=== PATIENT | female | born 1940 | race Caucasian/White ===

== ENCOUNTER → 2017-04-01 | Outpatient (CLI) | payer MEDICARE ==
[2017-04-01 18:39] LABS: Alanine Aminotransfer (ALT/SGP 16 U/L (12-78); Albumin, Blood 3.9 g/dL (3.4-5.0); Alk Phos 80 U/L (50-136); Anion Gap 9 mmol/L (6-16); Aspartate Aminotrans (AST/SGOT 16 U/L (12-37); Bilirubin, Total 0.5 mg/dL (0.1-1.0); Blood Urea Nitrogen 7 mg/dL (8-24); Bun/Creatinine Ratio 16.9 (12.0-20.0); CHOL/HDL RATIO 2.4; CO2, Blood 29 mmol/L (21-32); Calcium, Blood 9.6 mg/dL (8.5-10.1); Chloride, Blood 100 mmol/L (98-108); Cholesterol 200 mg/dL (50-200); Creatinine, Blood 0.42 mg/dL (0.40-1.00); Globulin, Blood 3.8 g/dL (2.2-4.0); Glomerular Filtration Rate >60 (60-); Glucose, Blood 85 mg/dL (70-99); HDL Cholesterol 84 mg/dL (>39); LDL/HDL RATIO 1.2; Low Density Lipoprotein Chol 98 mg/dL (0-110); Potassium, Blood 4.7 mmol/L (3.5-5.5); Sodium, Blood 138 mmol/L (136-145); Total Protein, Blood 7.7 g/dL (6.4-8.2); Triglycerides 90 mg/dL (30-160); Very Low Density Lipoprot Chol 18 mg/dL (6-32)
== END | disposition home or self-care (01) ==
LOC: LAB SHORT 17:58
PROVIDERS: Nurse Practitioner Family
DX: Z13.220 Encounter for screening for lipoid disorders (principal); I63.9 Cerebral infarction, unspecified; E55.9 Vitamin D deficiency, unspecified; R01.1 Cardiac murmur, unspecified; Z71.89 Other specified counseling
CPT/HCPCS: 80053; 80061; 82306

== ENCOUNTER 2019-11-15 16:37 | Emergency (ER) | payer MEDICARE, OTHER ==
[~2019-11-15] VITALS: Ht 165.1 cm; Wt 44.0 kg
[~2019-11-15 16:37] MED LIST: KEFLEX500 MG PO
[2019-11-15 17:19] LABS: BASOPHILS ABSOLUTE AUTO 0.04 K/mm3 (0.00-0.23); BASOPHILS PERCENT AUTO 0 % (0-2); EOSINOPHILS ABSOLUTE AUTO 0.07 K/mm3 (0.00-0.68); EOSINOPHILS PERCENT AUTO 1 % (0-6); Hematocrit 49.1 % (33.0-51.0); Hemoglobin 15.9 g/dL (11.5-16.0); IMMATURE GRAN ABSOLUTE AUTO 0.02 K/mm3 (0.00-0.10); IMMATURE GRAN PERCENT AUTO 0 % (0-1); LYMPHOCYTES PERCENT AUTO 11 % (21-46); MONOCYTES ABSOLUTE AUTO 0.89 K/mm3 (0.16-1.47); MONOCYTES PERCENT AUTO 8 % (4-13); Mean Corpuscular HGB 30.6 pg (26.0-34.0); Mean Corpuscular HGB Conc 32.4 g/dL (31.5-36.5); Mean Corpuscular Volume 94 fL (80-100); Mean Platelet Volume 11.3 fL (9.1-12.4); NEUTROPHILS ABSOLUTE AUTO 8.41 K/mm3 (1.96-9.15); NEUTROPHILS PERCENT AUTO 79 % (41-73); Platelet Count 208 K/mm3 (150-400); RDW Coefficient Variation 14.8 % (11.7-14.2); RDW Standard Deviation 52.1 fL (35.1-46.3); White Blood Cell Count 10.63 K/mm3 (4.00-11.30)
[2019-11-15 17:37] LABS: Alanine Aminotransfer (ALT/SGP 35 U/L (12-78); Albumin, Blood 3.4 g/dL (3.4-5.0); Albumin/Globulin Ratio 0.9 (0.8-1.8); Alk Phos 78 U/L (50-136); Anion Gap 4 mmol/L (6-16); Aspartate Aminotrans (AST/SGOT 23 U/L (12-37); Bilirubin, Total 0.3 mg/dL (0.1-1.0); Blood Urea Nitrogen 20 mg/dL (8-24); Bun/Creatinine Ratio 46.4 (12.0-20.0); CO2, Blood 32 mmol/L (21-32); Calcium, Blood 9.6 mg/dL (8.5-10.1); Chloride, Blood 105 mmol/L (98-108); Creatinine, Blood 0.43 mg/dL (0.40-1.00); Globulin, Blood 3.9 g/dL (2.2-4.0); Glomerular Filtration Rate >60 (60-); Glucose, Blood 88 mg/dL (70-99); Potassium, Blood 4.5 mmol/L (3.5-5.5); Sodium, Blood 141 mmol/L (136-145); Total Protein, Blood 7.3 g/dL (6.4-8.2)
[2019-11-15 17:59] LABS: Source, Urine Clean Catch
[2019-11-15 18:01] LABS: Bilirubin, Urine Neg (Neg); Blood, Urine Neg (Neg); Glucose Qualitative, Urine Neg (Neg); Ketones, Urine Neg (Neg); Leukocyte Esterase, Urine 3+ (Neg); Nitrite, Urine Pos (Neg); Protein, Urine Neg (Neg); Specific Gravity, Urine 1.015 (1.003-1.022); Urobilinogen, Urine NORM (Normal); pH, Urine 6.5 (5.0-8.0)
[2019-11-15 18:36] LABS: Appearance, Urine Hazy (Clear); Color, Urine Yellow (P-Yellow)
[2019-11-15 18:39] LABS: Bacteria Many /hpf; Red Blood Cells, Urine 0-2 /hpf (0-2); Squamous Epithelial Cells Rare /hpf (Few)
[2019-11-15] MEDS ORDERED: CIPR500 PO (20:08)
== END 2019-11-15 20:25 | disposition home or self-care (01) ==
LOC: ER 16:37
PROVIDERS: Emergency Medicine
DX: N39.0 Urinary tract infection, site not specified (principal); R60.0 Localized edema; R09.89 Other specified symptoms and signs involving the circulatory and respiratory systems; J44.9 Chronic obstructive pulmonary disease, unspecified; F17.210 Nicotine dependence, cigarettes, uncomplicated; Z85.22 Personal history of malignant neoplasm of nasal cavities, middle ear, and accessory sinuses; Z88.0 Allergy status to penicillin; W05.0XXA Fall from non-moving wheelchair, initial encounter
CPT/HCPCS: 71046; 80053; 81001; 85025; 87077; 87086; 87186; 93005; 93010; 99284-25

== ENCOUNTER 2019-12-02 09:46 | Inpatient (IN) | payer MEDICARE ==
[~2019-12-02] VITALS: Ht 165.1 cm; Wt 47.3 kg
[~2019-12-02 09:46] MED LIST changes: +CIPR500 PO
[2019-12-02 10:29] LABS: BASOPHILS ABSOLUTE AUTO 0.03 K/mm3 (0.00-0.23); BASOPHILS PERCENT AUTO 0 % (0-2); EOSINOPHILS ABSOLUTE AUTO 0.04 K/mm3 (0.00-0.68); EOSINOPHILS PERCENT AUTO 0 % (0-6); Hematocrit 51.2 % (33.0-51.0); Hemoglobin 16.3 g/dL (11.5-16.0); IMMATURE GRAN ABSOLUTE AUTO 0.02 K/mm3 (0.00-0.10); IMMATURE GRAN PERCENT AUTO 0 % (0-1); LYMPHOCYTES PERCENT AUTO 11 % (21-46); MONOCYTES ABSOLUTE AUTO 0.54 K/mm3 (0.16-1.47); MONOCYTES PERCENT AUTO 6 % (4-13); Mean Corpuscular HGB 30.8 pg (26.0-34.0); Mean Corpuscular HGB Conc 31.8 g/dL (31.5-36.5); Mean Corpuscular Volume 97 fL (80-100); Mean Platelet Volume 11.6 fL (9.1-12.4); NEUTROPHILS ABSOLUTE AUTO 7.92 K/mm3 (1.96-9.15); NEUTROPHILS PERCENT AUTO 83 % (41-73); Platelet Count 186 K/mm3 (150-400); RDW Coefficient Variation 14.7 % (11.7-14.2); RDW Standard Deviation 53.1 fL (35.1-46.3); White Blood Cell Count 9.55 K/mm3 (4.00-11.30)
[2019-12-02 10:32] LABS: Source, Urine Clean Catch
[2019-12-02 10:37] LABS: Appearance, Urine Hazy (Clear); Bilirubin, Urine Neg (Neg); Blood, Urine 3+ (Neg); Color, Urine Yellow (P-Yellow); Glucose Qualitative, Urine Neg (Neg); Ketones, Urine Neg (Neg); Leukocyte Esterase, Urine 2+ (Neg); Nitrite, Urine Pos (Neg); Protein, Urine Neg (Neg); Urobilinogen, Urine NORM (Normal)
[2019-12-02 10:45] LABS: White Blood Cells, Urine 25-50 /hpf (0-5)
[2019-12-02 10:46] LABS: Bacteria Many /hpf; Squamous Epithelial Cells Few /hpf (Few)
[2019-12-02 10:46] LABS: Alanine Aminotransfer (ALT/SGP 25 U/L (12-78); Albumin, Blood 3.4 g/dL (3.4-5.0); Albumin/Globulin Ratio 0.9 (0.8-1.8); Alk Phos 80 U/L (50-136); Anion Gap 5 mmol/L (6-16); Aspartate Aminotrans (AST/SGOT 15 U/L (12-37); Bilirubin, Total 0.5 mg/dL (0.1-1.0); Blood Urea Nitrogen 14 mg/dL (8-24); Bun/Creatinine Ratio 29.7 (12.0-20.0); CO2, Blood 34 mmol/L (21-32); Calcium, Blood 9.2 mg/dL (8.5-10.1); Chloride, Blood 106 mmol/L (98-108); Creatinine, Blood 0.47 mg/dL (0.40-1.00); Globulin, Blood 3.9 g/dL (2.2-4.0); Glomerular Filtration Rate >60 (60-); Glucose, Blood 94 mg/dL (70-99); Potassium, Blood 4.7 mmol/L (3.5-5.5); Sodium, Blood 145 mmol/L (136-145); Total Protein, Blood 7.3 g/dL (6.4-8.2); Troponin I <0.015 ng/mL (0.000-0.040)
--- NOTE | 2019-12-02 17:09 | NUR ---
SHIFT SUMMARY PT IS AOX1 TO SELF. PT EXHIBITS CONFUSION ABOUT WHERE SHE IS, THE DATE, AND REASON SHE IS IN THE HOSPITAL. PT DENIES PAIN, N/V, SOB. PT HAS DIFFICULTY AMBULATING AND USES A WHEELCHAIR AT BASELINE. PT WORKED WITH PT TODAY UPON ARRIVAL TO THE UNIT. PLAN IS TO FIND PLACEMENT TO A PRISON. PT HAS SCREAMED OUT WHEN SHE NEEDED TO USE THE BATHROOM WHILE USING THE CALL LIGHT. PT FORGETS LIMITATIONS BUT HAS NOT ATTEMPTED TO LEAVE THE BED THIS SHIFT. PT CALLS FOR HER NEEDS USING THE CALL LIGHT. BED IS LOWERED, CALL LIGHT IN REACH, BED ALARM ON.
--- NOTE | 2019-12-03 07:02 | NUR ---
DIRECT CARE PROFESSIONAL SUMMARY Patient quite animated and fidgety most of evening calling and setting off alarm due to urinary urgency. Then after around 2200, the patient asked to be tucked in and fell right to sleep. One episode of incontinence around 0400, then immediately onto the commode for another small void of 150ml of clear yellow urine. Very little odor. Aylin did seem very depressed about her situation and could likely benefit from a Pastoral Care or Industrial Machine Assembler consult.
--- NOTE | 2019-12-03 18:35 | NUR ---
SHIFT SUMMARY PT IS AO TO SELF AND SURROUNDINGS. PT DENIES PAIN, N/V, SOB. PT SCREAMS OUT FOR HELP AND FORGETS TO USE THE CALL LIGHT. PT IS AWAITING PLACEMENT TO ASSISTED LIVING. PT REQUIRES REDIRECTION BUT QUIETS DOWN AFTER REDIRECTION. PT IS IN BED, CALL LIGHT IN REACH, BED IN LOW POSITION WITH ALARM ON.
--- NOTE | 2019-12-04 08:03 | NUR ---
SAFETY PROFESSIONAL SUMMARY Aylin laid awake most of night just staring at the door. Several times she would yell out that she needed to leave. She insisted she needed a new bed and to leave here quickly. Urine resent for culture. Urine still appears light yellow and clear with minimal to no odor. Very confused. very focused on no light being in room even when staff comes in to assist her. last night, needed assistance with all adl's
--- NOTE | 2019-12-04 15:22 | NUR ---
CALLED DR RDZ AND INFORMED HER OF PT'S LOW GRADE FEVER OF 100.5 AND CONFUSION--DESPITE FREQUENT REORIENTATIONS, SHE DOESN'T REMEMBER THAT SHE IS IN THE HOSPITAL
--- NOTE | 2019-12-04 16:08 | NUR ---
Initial spiritual care note: Per admit trigger, I visited Aylin to offer prayer and spiritual encouragement. She was irritable and told me she "just wants to go home!" She declined prayer and conversation. I will remain available.
--- NOTE | 2019-12-04 18:26 | NUR ---
SHIFT SUMMARY DANIEL WAS ORIENTED SOMEWHAT THIS SHIFT. CONTINUOUSLY FORGETTING SHE IS IN THE HOSPITAL, SAYING 'I HAVE NO IDEA' WHEN ASKED WHERE SHE IS. NO IDEA THE YEAR. SLIGHT TEMP OF 100.4. YELLS OUT WHEN SHE NEEDS TO GO TO THE BSC AND/OR INCONTINENT URINE. DENIED PAIN. TOOK MEDS PRESCRIBED, WCTM
--- NOTE | 2019-12-04 22:49 | NUR ---
2055 PT LYING IN BED, DENIES ANY DISCOMFORT AT THIS TIME. SCD'S ON. NO OTHER APPARENT SIGNS OF DISTRESS. CALL LIGHT IS IN REACH. BED ALARM IS ON.
--- NOTE | 2019-12-04 22:50 | NUR ---
2200 PT LYING IN BED, EYES CLOSED, APPEARS TO BE RESTING. BREATHING IS EVEN, UNLABORED. NO APPARENT SIGNS OF DISTRESS. CALL LIGHT IS IN REACH. BED ALARM IS ON.
--- NOTE | 2019-12-05 01:55 | NUR ---
0000 PT LYING IN BED, EYES CLOSED, APPEARS TO BE RESTING. BREATHING IS EVEN, UNLABORED. NO APPARENT SIGNS OF DISTRESS. CALL LIGHT IS IN REACH. BED ALARM IS ON.
--- NOTE | 2019-12-05 04:30 | NUR ---
PT LYING IN BED, EYES CLOSED, APPEARS TO BE RESTING. WAKES EASILY TO VERBAL STIMULI. NO APPARENT SIGNS OF DISTRESS. CALL LIGHT IS IN REACH. BED ALARM IS ON.
--- NOTE | 2019-12-05 04:31 | NUR ---
PT IS AAO X 1-2, DENIES ANY DISCOMFORT FOR THIS SHIFT. SCD'S ON. EDEMA IN LE'S.
--- NOTE | 2019-12-05 05:58 | NUR ---
PT LYING IN BED, EYES CLOSED, APPEARS TO BE RESTING. BREATHING IS EVEN, UNLABORED. NO APPARENT SIGNS OF DISTRESS. CALL LIGHT IS IN REACH. BED ALARM IS ON. NO OTHER CHANGES THIS SHIFT.
--- NOTE | 2019-12-05 18:48 | NUR ---
SHIFT SUMMARY DANIEL WAS CONFUSED TODAY, NOT REMEMBERING SHE WAS IN THE HOSPITAL. SHE DID USE THE CALL LIGHT APPROPRIATELY ONE TIME, THE REST OF THE TIME YELLING OUT WHEN SHE NEEDED TO USE THE BSC. USUALLY INCONTINENT WELL SOME BSC USE. AO1 TO BSC WITH GAIT BELT. DENIED PAIN. TOOK MEDS PRESCRIBED.
--- NOTE | 2019-12-06 05:57 | NUR ---
Rn summary: Patient is alert and oriented x3. Pt was up to the BSC with 1 assist tonight. Pt is flat and withdrawn, engages with staff minimally. Pt has denied pain this shift. She has rested. Call light is in reach. Plan is for placement. Will continue to monitor.
--- NOTE | 2019-12-06 18:10 | NUR ---
SHIFT SUMMARY: NO ACUTE EVENTS THIS SHIFT. A&O X 1, WITHDRAWN AND APATHETIC, WANTS TO BE LEFT ALONE WITH THE LIGHTS OFF. REFUSED BATHING AND LINEN CHANGE; BOTH DONE WHILE SHE WAS ON BSC. DENIED PAIN. APPETITE IS VERY POOR, NOT DRINKING MUCH, NEEDS ENCOURAGEMENT BUT DOES NOT COOPERATE. NAPPED OFF AND ON DURING THE DAY.
--- NOTE | 2019-12-07 04:32 | NUR ---
SHIFT SUMMARY ASSUMED CARE OF PT AT 1900. PT IS ALERT TO SELF. HEART SOUNDS REGULAR, LUNG SOUNDS CLEAR. PT WAS A 1P MINIMAL ASSIST TO COMMODE. PT WAS BOTH CONTINENT AND INCONTINENT OF URINE. NO ACUTE CHANGES T/O THE NIGHT. PT SLEPT T/O THE NIGHT. CALL LIGHT IN REACH, BED IN LOWEST POSITION.
--- NOTE | 2019-12-07 18:26 | NUR ---
SHIFT SUMMARY- PT IS ALERT, AND CONFUSED. SHE HAS SHORT RESPONSES TO QUESTIONS. HER APPETITE IS POOR. SHE SAT UP TO EAT MEALS. SHE SLEPT INTERMITENTLY THROUGHOUT THIS SHIFT
--- NOTE | 2019-12-08 03:32 | NUR ---
SUMMARY NO ISSUES NOTED. PT HAS BEEN RESTING/ SLEEPING MOST OF SHIFT. PT REPORTED NO COMPLAINTS OR ISSUES. PT CURRENTLY SLEEPING AND BREATHING EASY. CALL LIGHT IN REACH.
--- NOTE | 2019-12-08 18:33 | NUR ---
Shift Summary A/O to self. Does not use call light appropriately, instead yells out for assistance. Up to bedside commode x 1 moderate assist, continent of bowel, incontinent of bladder. Refused PT, worked minimally with OT. Appears to have a flat affect and lacks motivation for self care. Will not sit up in chair for longer than 10 minutes. Otherwise, VSS and afebrile. No concerns, will continue to monitor.
--- NOTE | 2019-12-09 04:53 | NUR ---
SUPERVISOR LANDSCAPE SUMMARY PT IS VERY WITHDRAWN AND ONLY ANSWERS IN ONE WORD RESPONSES. PT DOES NOT USE CALL LIGHT INSTEAD SHE YELLS OUT WHEN SHE NEEDS ASSISTANCE. PT DENIES ANY PAIN OR NAUSEA AND HAS ONLY CALLED OUT ONCE TO USE BSC.
--- NOTE | 2019-12-09 14:20 | NUR ---
SHIFT SUMMARY TRANSFERRED TO ROOM 353 AT ABOUT 1100. DENIES NEEDS. ORIENTED TO ROOM. RESTING WITH EYES CLOSED. AWAITING PLACEMENT. NO ACUTE EVENTS.
--- NOTE | 2019-12-09 16:29 | NUR ---
1014 PT TRANSFERED TO [facility] SECONDARY TO CONFUSION, YELLING OUT, AND HIGH FALL RISK. REPORT GIVEN TO Fredy MEDINA RN PRIOR TO TRANSFER.
--- NOTE | 2019-12-10 04:09 | NUR ---
MOTION AND TIME STUDY TEACHER SUMMARY NO ACUTE CHANGES NOTED TO PATIENT THIS SHIFT. PATIENT IS A&O TO SELF, ABLE TO MAKE NEEDS KNOWN. FLAT AFFECT, WITHDRAWN. CALM AND RESTED IN BED T/O SHIFT. PATIENT HAS NO C/O PAIN OR ANY DISCOMFORT. DIMINISHED LS, NO C/O SOB. MINOR TREMORS NOTED WHEN PATIENT WAS TAKING HER MEDICATIONS. NO TREMORS NOTED AT REST. BED ALARM IN PLACE, CALL LIGHT WITHIN REACH. WILL CONTINUE TO MONITOR PATIENT. WILL REPORT TO ONCOMING RN.
--- NOTE | 2019-12-11 04:24 | NUR ---
SHIFT SUMMARY PATIENT HAD NO ACUTE CHANGES OBSERVED. AXO TO SELF. FLAT AFFECT AND WITHDRAWN. KEEPS REPEATING WHAT SHE WANTS WHEN HER REQUEST HAS ALREADY BEEN ANSWERED. ONE ASSIST TO BSC. TAKES MEDICATION WHOLE WITH WATER. PIV REMAINS INTACT. BASELINE HAND TREMORS. CALL LIGHT IN REACH. BED IN LOWEST POSITION. WILL CONTINUE TO MONITOR UNTIL DAY SHIFT NURSE ASSUMES CARE.
--- NOTE | 2019-12-11 16:31 | NUR ---
A&OX2, ONE ASSIST PIVOT TRANSFER TO [facility] AND INCONTINENT. PT HAD APPROXAMATLEY 50 PERCENT OF HER MEALS. PT DENIES ANY PAIN. D/C OF IV PER DR. MINAYA. PT APPERARS TO BE SLEEPING AT THIS TIME. NO OTHER CHANGES OR CONCERNS TO REPORT AT THIS TIME. CALL LIGHT AND BED ALARM IS ON AT THIS TIME.
--- NOTE | 2019-12-12 07:13 | NUR ---
79 year old PT with failure to thrive & skin cancer continues with poor oral intake & needed max assist for toileting & bed mobility. Incont of urine & says she knows when she is wet needs checked & changed Q 4 hours & PRN. Repositioning needed to prevent skin breakdown. Flat affect but able to communicate. Fall precautions in place.
--- NOTE | 2019-12-12 15:13 | NUR ---
Met with pt able to slowly answer some questions. She deies headache and shorness of breath or aches and pain. Trie to mayke eye contact but doesn not turn headwell. Able to tell me she was at [facility] but lives here now. Denies having family or children states they wnet thier separate ways. she grew up in [facility]. Came to [place] to get away. She does not know whey she is here. Her face is very mask like and slight tremor. tried some divrsion turned on a program to watch tv she did not know what to watch. Tried conversation but to stressfuli.
--- NOTE | 2019-12-12 18:00 | NUR ---
PT IS ALERT, SOMULANT, THE PT IS SLOW TO RESPOND, THE PT DENIED ANY PAIN T/O THE DAY, THE PT IS UP WITH ASSIST TO THE BSC, PT DENIED ANY PAIN, THE PT APPEARED TO BE BREATHING EASILY ON RA, CALL LIGHT IN REACH, WILL CONTIUE TO MONITOR AND ASSESS FOR CHANGES
--- NOTE | 2019-12-12 20:35 | NUR ---
79 year old with failure to thrive able to communicate. asks nurses on rounds to help her get to bedside commode, Very weak unsteady up with 2 assist to BSC for large bowel movement. Incontinent & voids 200 ml on BSC. Denies pain or acute distress but is withdrawn, quiet & likes lights down & complains about any light even with cares. PT is being moved to room 341 report to Eula EDMOND & will update facility on room change.
--- NOTE | 2019-12-12 21:05 | NUR ---
transferred care to Reuben EDMOND & left voice message with Desiree Preston on room transfer. Transferred personal beloninging with PT.
--- NOTE | 2019-12-12 21:21 | NUR ---
PATIENT ARRIVED IN ROOM 341 VIA BED FROM ROOM 353. REPORT RECEIVED FROM RUBY HDEZ RN. PATIENT STATES NO DISCOMFORT. ALERT TO SELF. FLAT AFFECT. WILL CONTINUE CLOSE MONITORING
--- NOTE | 2019-12-13 05:34 | NUR ---
BUGGY LOADER SUMMARY Patient very quiet and somewhat flat throughout the night after being transferred from room 353 to room 341. Incontinent of urine X2 in briefs. Last BM 12/11. Aylin is quite obsessive about whatever is in her mind at the moment. (ie.. turning off lights, moving objects on table etc.) She is A&OX 1-2.
--- NOTE | 2019-12-13 13:32 | NUR ---
SHIFT SUMMARY PT RESTING QUIETLY AT START OF SHIFT. WOKE EASILY FOR CARE, BUT VERY WEAK WITH FLAT AFFECT. VERY LIMITED ASSISTANCE WHEN TURNING OR REPOSITIONING. PER SHIFT REPORT, PT WITH INCREASING DEMENTIA, NEEDING HIGHER LEVEL OF CARE. PT IS INCONTINENT OF BLADDER; ATTENDS IN PLACE. BED BATH GIVEN. PT REPOSITIONED WITH PILLOWS TO KEEP OFF BUTTOCKS. ABLE TO ANS TO STATE WHERE SHE IS COMFORTABLE. MEDS TAKEN WHOLE IN H2O. BED ALARM ON FOR SAFETY. CALL LT IN REACH.
--- NOTE | 2019-12-14 17:02 | NUR ---
PT AOX1 HAS BEEN COOPERATIVE OF CARE AND IN BED RESTING. PT DOES NOT USE CALL LIGHT AND WILL JUST START CALLING OUT. PT CAN LET CAREGIVERS KNOW IF SHE NEEDS TO USE RESTROOM OR A PILLOW MOVED,BUT NOTHING MORE. PT HAS BED ALARM IN PLACE AND WILL BE CONTINUED TO BE MONITORED.
--- NOTE | 2019-12-15 04:04 | NUR ---
SHIFT SUMMARY: 79 Y/O FEMALE RESTED COMFORTABLY ALL SHIFT; NO EPISODES YELLING OUT NOTED; ALERT PERSON ONLY; DENIES PAIN OR NAUSEA; BED ALARM APPLIED, BED LOW POSITION WITH CALL LIGHT AT SIDE.
--- NOTE | 2019-12-15 14:23 | NUR ---
PT TRANSFERED FROM RM 341 TO RM 347 IN SCU, REPORT RECIEVED PRIOR TO TRANSFER.
--- NOTE | 2019-12-15 17:53 | NUR ---
ALERT, ORIENTATED TO SELF, FOLLOWS DIRECTIONS, COOPERATIVE WITH CARE. PT WILL NOT USE CALL LIGHT, SHE DOES CALL OUT WHEN SHE REQUIRES ASSISTANCE. PT DENIES PAIN, SOB, N/V. NO NEW CHANGES OR CONCERNS SINCE ASSUMING CARE.
--- NOTE | 2019-12-15 19:29 | NUR ---
RESTING QUIETLY AT NURSING ROUNDING. CALL LIGHT IN REACH. NO NOTED ACUTE DISTRESS.
--- NOTE | 2019-12-16 04:13 | NUR ---
SIFT SUMMARY BEEN RESTING QUIETLY WITH FEW INTERRUPTIONS THIS SIFT. WHEN MURSE CAME I O ASSESS HER - SHE VOICED PREFERENCE TO "KEEP THE LIGHT OFF". RELUCTANTLY ALLOWED IT ON UNTIL SSESSMENT DONE, THEN INSTRUCTED NURSE TO "TURN OFF THE LIGHT!". RESTING QUIETLY AT THIS TIME. CALL LIGHT IN REACH
--- NOTE | 2019-12-16 17:11 | NUR ---
SHIFT SUMMARY PATIENT DENEIS PAIN, NAUSEA, AND SHORTNESS OF BREATH. PATIENT UP ONE ASSIST TO BSC. PATIENT HAD TWO LOOSE/INCONTINENT STOOLS THIS SHIFT. PATIENT WITHDRAWN, NAPPING OR WATCHING TELEVISION THIS SHIFT. REFUSES OOB EXCEPT FOR SHOWER.
--- NOTE | 2019-12-16 19:15 | NUR ---
AWAKE, WATCHING TV IN BED. DEMIED PAIN AND LOSS OF FEELING. CALL LIGHT IN REACH
--- NOTE | 2019-12-17 04:28 | NUR ---
HAS BEEN RESTING QUIETLY WITH FEW INTERRUPTIONS THIS SHIFT. CALL LIGHT IN REACH. NO NOTED S/S OF ACUTE DISTRESS.
--- NOTE | 2019-12-17 17:30 | NUR ---
SHIFT SUMMARY PATIENT DENIES PAIN, NAUSEA, AND SHORTNESS OF BREATH. PATIENT WITHDRAWN. STATES SHE IS LONELY, DECLINED OFFER TO SIT WITH STAFF IN HALLWAY. UP ONE ASSIST TO BSC. NAPPING OR WATCHING TV MOST OF SHIFT. FLUIDS ENCOURAGED.
--- NOTE | 2019-12-17 21:07 | NUR ---
AWAK, QUIETLY WATCING FOOTBALL GAME ON TV. ASSESSMENT DONE, DENIED PAIN OR DECREASED SENSATION. NURSE ATTEMPT AT SMALL CHAT, BUT PT REMAINS QUIET AND WITHDRAWN. CALL LIGHT IN REACH
--- NOTE | 2019-12-18 03:08 | NUR ---
SHIFT SUMMARY HAS BEEN RESTING QUIETLY, OCCASIONALLY WATCHING TV. NO NOTED S/S ACUTE DISTRESS. CALL LIGHT IN REACH. PREFERS LIGHTS OFF.
[2019-12-18 05:16] LABS: Hematocrit 50.2 % (33.0-51.0); Hemoglobin 16.1 g/dL (11.5-16.0); Mean Corpuscular HGB 30.8 pg (26.0-34.0); Mean Corpuscular HGB Conc 32.1 g/dL (31.5-36.5); Mean Corpuscular Volume 96 fL (80-100); Mean Platelet Volume 11.3 fL (9.1-12.4); Platelet Count 199 K/mm3 (150-400); RDW Coefficient Variation 13.8 % (11.7-14.2); RDW Standard Deviation 49.3 fL (35.1-46.3); Red Blood Cell Count 5.23 M/mm3 (3.80-5.20); White Blood Cell Count 8.91 K/mm3 (4.00-11.30)
[2019-12-18 05:38] LABS: Albumin, Blood 2.8 g/dL (3.4-5.0); Anion Gap 4 mmol/L (6-16); Blood Urea Nitrogen 19 mg/dL (8-24); Bun/Creatinine Ratio 49.7 (12.0-20.0); CO2, Blood 28 mmol/L (21-32); Calcium, Blood 8.8 mg/dL (8.5-10.1); Chloride, Blood 106 mmol/L (98-108); Creatinine, Blood 0.38 mg/dL (0.40-1.00); Glomerular Filtration Rate >60 (60-); Glucose, Blood 87 mg/dL (70-99); Potassium, Blood 4.7 mmol/L (3.5-5.5); Sodium, Blood 138 mmol/L (136-145)
--- NOTE | 2019-12-18 13:59 | NUR ---
therputic time spent with patient. Poor eye contact. Note slight tremor. Pt answers mostly yes no questions. offered her things to do or to get out of rrrom. She declined. will continue supportive viists. Suggest out patient neuro consult upon discharge.
--- NOTE | 2019-12-18 19:05 | NUR ---
SHIFT SUMMARY: NO ACUTE CHANGES TO REPORT THIS SHIFT. PT A&O X2-3; IRRITABLE; COOPERATIVE WITHCARE. NO C/O PAIN THIS SHIFT. POOR ORAL INTAKE; ADD'L INTAKE ENCOURAGED. AWAITING PLACEMENT. REPORT GIVEN TO ONCOMING RN.
--- NOTE | 2019-12-18 19:45 | NUR ---
ASSUMED CARE. DANIEL IS ALERT AND ORIENTED TO SELF. DOES NOT KNOW DAY AND TIME, OR WHERE SHE IS AT OTHER THEN A MEDICAL FACILITY. SHE IS VERY WITHDRAWN, FLAT AFFECT AND APPEARS THAT IT BUGS HER THAT I WAS TALKING TO HER. SHE DOES NOT LIKE ANSWERING QUESTIONS OR BEING BOTHERED. SHE EVEN PULLED HER TABLE BACK IN FRONT OF HER SO THAT IT WOULD PUSH ME AWAY. SHE WOULD ONLY ANSWER A FEW QUESTIONS THEN SHE WAS DONE WITH THE ASSESSMENT. DENIES ANY NEEDS A THIS TIME. WILL CONTINUE TO MONITOR. BED ALARM IS ON AND CALL LIGHT IS IN REACH.
--- NOTE | 2019-12-19 05:24 | NUR ---
SHIFT SUMMARY: DANIEL AOX2, VERY QUITE AND DOES NOT LIKE TO INTERACT WITH STAFF. SHE PERFERS TO BE LEFT ALONE IN THE DARK. DENIED ALL MEDICATION THIS SHIFT. WOULD ONLY LET US CHANGE HER THIS AM, WHICH SHE WAS SATURATED WITH URINE. GETS VERY UPSET IF WE MOVE THE BEDSIDE TABLE AWAY FROM THE BED EVEN FOR A SHORT PERIOD OF TIME. DRESSING TO BOTTOM STILL INTACT. VS WNL, AFEBRILE. BED ALARM ON, CALL LIGHT IN REACH. NO OTHER CHANGES TO REPORT.
--- NOTE | 2019-12-19 19:05 | NUR ---
SHIFT SUMMARY: NO ACUTE CHANGES TO REPORT THSI SHIFT. PT A&O X2-3; IRRITABLE; FLAT AFFECT; UNCOOPERATIVE WITH CARE; PT DESIRES TO BE LEFT ALONE. NO C/O PAIN. AWAITING PLACEMENT. REPORT GIVEN TO ONCOMING RN.
--- NOTE | 2019-12-19 19:20 | NUR ---
ASSUMED CARE. DANIEL IS VERY WITHDRAWN, FLAT, AND DOES NOT INTERACT WITH STAFF. SHE REFUSES TO ANSWER QUESTIONS WHEN ASKED. SHE DOES ALLOW FOR MILD ASSESSMENT BUT THEN WILL NOT MOVE FOR A FURTHER ASSESSMENT. SHE DOES NOT MAKE EYE CONTACT. SHE DOES NOT EVEN SPEAK OTHER THEN A MUMBLE HERE AND THERE. WHEN ASKED IF SHE WANTS HER MEDS TONIGHT SHE REFUSED TO ANSWER. WILL CONTINUE TO MONITOR, BED ALARM IS ON, AND CALL LIGHT IS IN REACH.
--- NOTE | 2019-12-20 05:25 | NUR ---
SHIFT SUMMARY: DANIEL HAS REMAINED QUITE ALL NIGHT, SLEEPING COMFORTABLY. STILL REFUSES TO TAKE ANY MEDS OR HAVE ASSISTANCE. SHE IS VERY WITHDRAWN AND DOES NOT EVEN LIKE TO TALK WHEN ASKED QUESTIONS. SHE DOES ALLOW VITALS AND MINIMAL ASSESSMENT TO BE DONE. SHE JUST PERFERS TO LAY IN THE DARK. CALL LIGHT HAS BEEN IN REACH AND BED ALARM ON.
--- NOTE | 2019-12-20 17:00 | NUR ---
SUMM- PT ALERT TO SELF. ANSWERS IN 1-2 WORD PHRASES. WITHDRAWN AND RESISTANT TO CARE. REFUSES TO ALLOW STAFF TO DO ORAL CARE. REFUSES TO GET UP INTO A CHAIR. PT TOLERATED ABOUT 50-75% OF MEALS AND TAKING IN MIN AMOUNT OF FLUIDS. PT DOESN'T USE CALL LIGHT BUT CALLS OUT TO GET HELP. GOT UP TO BSC 3-4 X'S TODAY AND HAD NO VOID- HAD BEEN INCONTINENT BEFORE GETTING UP AND NEVER VOIDED IN THE COMMODE. WILL REPORT TO NOC SHIFT.
--- NOTE | 2019-12-20 22:00 | NUR ---
Patient remains very withdrawn. She has again refused all of her HS medications, oral care, position changes or even a sip of fluid. Her voice is extremely difficult to hear, but she gently says no and shakes her head. She appears without hope. Does not appear to be in any pain. Breath smells fetid. Will continue to offer oral care, fluids. More frequent intentional rounding overnight, and hopefully will be able to provide some comfort to this very withdrawn and hopeless appearing patient. Will ask Day RN about Social work or Clergy visits.
--- NOTE | 2019-12-21 03:40 | NUR ---
PUBLIC HEALTH REPRESENTATIVE SUMMARY Aylin continues to be extremely withdrawn. She refuses all treatment except brief changes (which to allow staff to reposition each time). Oral care, medications, skin care and dietary items she does not have any inclination or interest in. Especially concerned about mouth breath smells fetid, and pt won't even take a sip of liquid.
--- NOTE | 2019-12-21 15:45 | NUR ---
Met with Aylin as per nursing request. Aylin has been refusing meds, care, food and fluids. She appears quite withdrawn and quiet. She has poor eye contact. This comic book writer entered the room and woke her up by calling her name. She answers simple yes/no questions. She is flat and withdrawn. Explained to her that I would like to help her but that she has to be willing to talk to me. She answers all questions of orientation appropriately at the time of my visit but has poor eye contact. She tells this comic book writer she is sad because she is in the hospital. She wants to go somewhere that she can get more care. She would not answer why she was choosing to refuse care, food/fluids and meds. Asked her if she wanted to seek care for her nasal cancer. She immediately said no without any hesitation. Asked her if she wanted to focus on being comfortable even if if meant she may not live as long and she immediately said yes. Explained to her that [facility] is working with [facility] on placement and the medicaid process. Explained to her that she could have hospice services that focus on comfort and not coming back to the hospital once she gets to her new living place. Yes stated that yes she wants hospice. Explained comfort care and asked her if she would like to start that while she is here. She stated yes she wants to change to comfort care. Explained that continuing to refuse food and fluid and not treating her cancer will hasten her . She stated that she understood. She denied all requests except chap stick which I provided for her. She tells me that Desiree Preston who is listed as her NOK is her step dtr. She states she has been in contact with Desiree recently and she gave this comic book writer permission to talk to Desiree about her medical care and her desire for hospice services. Called Desiree. Desiree states she is Aylin's step dtr and she lives in [place], [place]. She spoke with Aylin yesterday via phone and states that she seems withdrawn and was a little confused yesterday. Explained that Aylin was A/O x 4 today during on conversation. Desiree states Aylin has always been an introvert and would prefer to be home alone drinking and smoking. Desiree states Aylin used to be a "heavy drinker and she smoked a lot of pot!" Explained to Desiree that Aylin is not eating or drinking and is refusing care. Also informed her that Aylin is requesting comfort care and hospice. Desiree is supportive of Aylin's decision. Desiree reports she is familiar with hospice as several family members have had hospice services at the end of their life. Desiree states she is more than happy to assist with APD/CM to help get Aylin the care that she needs. Gave Desiree, Aylin's caseworkers name and contact number. Also left a message with CM, Peace Torre, to contact Desiree if there are any needs. Desiree states if she needs to travel to [place] to assist getting Aylin the placement and help she needs she is willing to do it. Desiree reports that after her dad , she has kept track of Aylin even though they are not really close. PC will continue to follow. Will speak with Dr. Sanchez re: conversation re: comfort care.
--- NOTE | 2019-12-21 17:22 | NUR ---
SHIFT SUMMARY PT A/O X3 WITH A FLAT/HOPELESS AFFECT. PT REFUSED MEDICATIONS AND MOST CARE TODAY. 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 1-2 PERSON ASSIST TO THE BSC. PT HAS GOTTEN UP TO THE BSC OFTEN TODAY. PALLIATIVE CARE SPOKE WITH PATIENT TODAY AND THE PATIENT HAS STATED THAT SHE WOULD LIKE TO STOP AGGRESSIVE TREATMENT AND TO FOCUS ON COMFORT. PT'S STEP DAUGHTER CONSULTED AND THE PT HAS BEEN MADE COMFORT CARE. PT HAS BEEN REFERRED TO HOSPICE WELL. PT CURRENTLY RESTING IN BED WITH HER CALL LIGHT IN REACH. WCTM.
--- NOTE | 2019-12-21 21:33 | NUR ---
Aylin is a little more verbally responsive tonight, Still refusing HS meds including her amytriptylline. She denies any discomfort and stated that she did not want me to check her brief or assist her to the commode. Will follow up in one hour. Usually she has no issues with staff checking her brief and changing it PRN. She will not use call light to call
--- NOTE | 2019-12-22 03:33 | NUR ---
STRATEGIC DEVELOPMENT MANAGER SUMMARY Patient slightly more verbal tonight. Still stating she is not having any pain or discomfort. Physical assessment remains unchanged from yesterday. Was able to transfer to bedside commode with 2 assist (one for patient, one for briefs.) Skin still appears intact. Protective sacral mepilex intact to protect bony promeninces. I believe patient is much more comfortable since changing to comfort care.
--- NOTE | 2019-12-22 10:14 | NUR ---
Comfort Care Visit Pt resting in bed upon arrival. Pt denies pain and dyspnea. Pt appears withdrawn and does'nt engage in conversation much, answering in just yes and no questions. Pt denies depression. Pt reports no concerns at this time. Spoke with Bedside RN Jason and discussed case. Palliative Care will remain available.
--- NOTE | 2019-12-22 16:41 | NUR ---
SHIFT SUMMARY PT A/O X2 AND COMFORT CARE. PT DENIES ANY PAIN AND REFUSES MEDICATIONS. PATIENT RESTING COMFORTABLY IN BED. 1-2 PERSON ASSIST TO THE BSC. PT ASKS OFTEN TO GET UP TO THE BSC BUT OFTEN DOES NOT VOID OR HAVE A BM. CALLS OUT BUT INSTRUCTED TO USE THE CALL. WCTM.
--- NOTE | 2019-12-22 20:12 | NUR ---
PATIENT IS CURRENTLY SLEEPING COMFORTABLY IN HER BED. NO COMPLAINTS OF PAIN.
--- NOTE | 2019-12-23 06:06 | NUR ---
SHIFT SUMMARY PATIENT HAD NO COMPLAINTS OF PAIN OR DISCOMFORT OVERNIGHT. SHE WAS RESISTANT TO CARE OFFERED TO HER, SAID SHE WAS FINE AND DIDN'T NEED ANYTHING. SLEPT MOST OF THE NIGHT. BED IN LOWEST POSITION WITH WHEELS LOCKED AND ALARM ON. CALL LIGHT WITHIN REACH. REPORT GIVEN TO ONCOMING RN.
--- NOTE | 2019-12-23 06:07 | NUR ---
PT REFUSED REPOSITION AND ATTENDS CHECK/CHANGE, NURSE NOTIFIED
--- NOTE | 2019-12-23 11:08 | NUR ---
Comfort Care Visit Pt resting in bed and denies pain at this time. Pt appears comfortable with no S/S of distress at this time. Offered gentle voice and therapeutic listening with Pt reporting no concerns at this time. Spoke with Bedside RN Randi and discussed case. Palliative Care will remain available.
--- NOTE | 2019-12-23 17:20 | NUR ---
PT AO AND COOPERATIVE OF CARE. PT RESTS IN BED ALL DAY AND WILL CALL OUT TO GET UP TO BEDSIDE COMMODE. MOST TIMES SHE HAS BEEN INCONTINENT AND WILL NOT VOID ONCE SHE IS UP TO COMMODE. PT IS RESTING IN BED AT THIS TIME AND HAS DENIED ANY PAIN TODAY. WILL CONTINUE TO MONITOR BED ALARM IN PLACE.
--- NOTE | 2019-12-23 20:25 | NUR ---
EDUCATIONAL FUNDRAISING DIRECTOR CHANGED PATIENT'S BLANKETS AND ATTENDS. PATIENT REPOSITIONED. NO COMPLAINTS OF PAIN.
--- NOTE | 2019-12-24 06:10 | NUR ---
SHIFT SUMMARY PATIENT ALERT AND ORIENTED. WAS CONTENT TO SIT IN HER BED ALL SHIFT IN THE DARK RESTING. SHE HAD NO COMPLAINTS OF PAIN OR DISCOMFORT. BED IN LOWEST POSITION WITH WHEELS LOCKED AND ALARM ON. CALL LIGHT WITHIN REACH. REPORT GIVEN TO ONCOMING RN.
--- NOTE | 2019-12-24 13:43 | NUR ---
Comfort Care Visit Pt resting in bed upon arrival. Pt watching football and javi pain at this time. Pt appears comfortable with no S/S of distress at this time. Attempted to get Pt to engage in conversation. Pt confirms liking football but remains withdrawn from conversation. Pt responds to questions only by yes and no. Pt reports no concerns at this time. Palliative Care will remain available.
--- NOTE | 2019-12-24 17:19 | NUR ---
PT HAS HAD NO CHANGES AT THIS TIME. PT CALL OUT TO TRANSFER TO [facility]. PT IS A ONE PERSON TRANSFER. PT IS INCONTINENT AT TIMES. PT REST WITH LIGHTS OFF IN ROOM. NO DISTRESS NOTED AND HAS DENIED ANY PAIN AT THIS TIME. WILL CONTINUE TO MONITOR.
--- NOTE | 2019-12-25 05:48 | NUR ---
SHIFT SUMMARY PATIENT ALERT, SPENT MOST OF THE SHIFT LYING IN HER BED AND RESTING WITH HER EYES CLOSED. SHE IS STILL RESISTANT TO CARE AND WILL NOT EAT OR DRINK MUCH. BED IN LOWEST POSITION WITH WHEELS LOCKED AND ALARM ON. CALL LIGHT WITHIN REACH. REPORT GIVEN TO ONCOMING RN.
--- NOTE | 2019-12-25 15:31 | NUR ---
pt resting comfortably this morning. Minimal interaction pending placement.
--- NOTE | 2019-12-25 16:45 | NUR ---
PT HAS NO NEW CHANGES. PT IS BEING KEEP COMFORTABLE AT THIS TIME AND DENIES ANY PAIN. PT WILL NOT USE CALL LIGHT AND WILL CALL OUT TO BE A ONE PERSON ASSIST TO BED SIDE COMMODE. NO DISTRESS NOTED WILL CONTINUE TO MONITOR.
--- NOTE | 2019-12-26 04:37 | NUR ---
SUMMARY: PT REMAINS ON COMFORT MEASURES AND HAS DENIES PAIN AND ALL OTHER COMPLAINTS. NO PRN MEDS REQUIRED. SHE'S WITHDRAWN AND HAS A FLAT AFFECT BUT SPECIFIES NEEDS AND CALLS INTO THE HALLWAY FOR ASSISTANCE PRN. PT IS FORGETFULL AND DOESN'T USE CALL LIGHT SO BED ALARM ON FOR FALL RISK. 1P ASSIST REQUIRED TO PIVOT T/F TO BSC. PT WAS INCONTINENT W/ATTENDS CHANGED PRN. NO ACUTE CHANGES. SHE SLEPT MAJORITY OF NOCTE W/REPOSITION ASSISTANCE PROVIDED. FLOR AND REPORT TO DAY RN.
--- NOTE | 2019-12-26 17:07 | NUR ---
Shift Summary Pleasant with care, no complaints of pain, nausea. Frequent urination noted with little output, bladder scan volume showed minimal to no urine. 1P moderate assist to bedside commode. Patient enjoys eating pudding and pudding-like textured foods like custard and yogurt. Hollars out for assistance, otherwise, no acute changes. Will continue to monitor for comfort.
--- NOTE | 2019-12-27 05:09 | NUR ---
SUMMARY: PT REMAINS ON COMFORT MEASURES AND HAS SLEPT THE [place]JORITY OF [place] W/O COMPLAINTS. SHE CALLS INTO HALLS FOR ASSIST PRN BUT DOESN'T USE CALL LIGHT. SBA PROVIDED FOR PIVOT T/F TO BSC TO VOID, ATTENDS CHANGED FOR URINARY INCONTINENCE. ENCOURAGED PO INTAKE. PT HAS DINNER TRAY AT BEDSIDE BUT WON'T ALLOW STAFF TO REMOVE IT ON ACCOUNT OF STILL "EATING OFF IT". NO ACUTE CHANGES. WCTM AND REPORT TO DAY RN.
--- NOTE | 2019-12-27 17:20 | NUR ---
Shift Summary Used call light appropriately for a little bit and began to hollar out for needs again. Dr. Mcgarry has seen patient and assessed nasal septum, ointment ordered, otherwise, no complaints of pain or discomfort. Continues to refuse bathing despite education. Will continue to monitor and report to oncoming RN.
--- NOTE | 2019-12-27 22:14 | NUR ---
PATIENT ON COMFORT CARE RESTING IN BED.
--- NOTE | 2019-12-28 03:46 | NUR ---
SHIFT SUMMARY PATIENT ON COMFORT CARE HAD NO ACUTE CHANGES OBSERVED. AXO TO SELF WITH FLAT AFFECT. NO IV ACCESS. DENIES PAIN, SOB, AND N/V. STAND PIVOT WITH ONE ASSIST TO BSC. ABLE TO SLEEP MOST OF THE SHIFT AFTER WATCHING TV. CALL LIGHT IN REACH. BED IN LOWEST POSITION. WILL CONTINUE TO MONITOR UNTIL DAY SHIFT NURSE ASSUMES CARE.
--- NOTE | 2019-12-28 16:04 | NUR ---
PATIENT CONTINUES ON COMFORT CARE. SHE CALLS OUT WHEN SHE NEEDS TO USE THE BATHROOM; SHE IS THEN ASSISTED TO THE [facility]. SHE HAS HAD NO ACUTE CHANGES NOTED OR REPORTED THIS SHIFT. SHE REMAINS STABLE FOR HER CURRENT CONDITION. PATIENT IS RESTING IN BED AT THIS TIME. WILL CONTINUE TO MONITOR AND PROVIDE CARE NEEDED.
--- NOTE | 2019-12-29 04:05 | NUR ---
SHIFT SUMMARY PATIENT ON COMFORT CARE. AXO TO SELF AND ONE ASSIST TO BSC. PATIENT CALLS OUT WHEN SHE NEEDS HELP. DOES NOT USE CALL LIGHT. DENIES PAIN, SOB, AND N/V. SLEPT MOST OF THE SHIFT AFTER WATCHING TV. COOPERATIVE WITH CARE. CALL LIGHT IN REACH. BED IN LOWEST POSITION. WILL CONTINUE TO MONITOR UNTIL DAY SHIFT NURSE ASSUMES CARE.
--- NOTE | 2019-12-29 08:10 | NUR ---
PT JUST WOKE UP; AND DENIES PAIN, N&V. ASSISTED THE PT TO BSC AND BACK TO BED.
--- NOTE | 2019-12-29 10:03 | NUR ---
PT SLEEPING AT THIS TIME
--- NOTE | 2019-12-29 10:26 | NUR ---
Comfort Care: Pt is currently resting with her eyes closed. She does not wake to voice cue and this functional tester typewriters allows rest. She has her breakfast tray in front of her with about 30% consumed. Spoke with nursing. Gladys reports that pt has denied pain today. She states that the pt requested that her tray stay in front of her, as she may not be finished eating. Reviewed pt's prior complaints to nursing. 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 Recommended subjective assessment of her nose pain, and start with Tylenol for nasal pain. Will remain available.
--- NOTE | 2019-12-29 11:35 | NUR ---
PT REFUSED PAIN MEDICATIONS; AND DENIES ANY PAIN. PT ALSO REFUSED NASAL SPRAY AND DENIES ANY NASAL PAIN OR DRYNESS.
--- NOTE | 2019-12-29 13:11 | NUR ---
ASSISTED THE PT TO BSC AND BACK TO BED. DENIES PAIN, N&V.
--- NOTE | 2019-12-29 15:00 | NUR ---
PT SLEEPING COMFORTABLY AT THIS TIME
--- NOTE | 2019-12-29 16:46 | NUR ---
PT ASSISTED TO BSC; DENIES ANY PAIN, SUCH NASAL PAIN OR DRYNESS. DENIES NAUSEA OR VOMITING . PT BACK TO BED
--- NOTE | 2019-12-29 17:51 | NUR ---
PT ASSISTED TO BSC; DENIES ANY PAIN AT THIS MOMENT BACK TO BED AND EATING
--- NOTE | 2019-12-29 18:23 | NUR ---
SHIFT SUMMARY PT CALLS APPROPRIATELY; PT ANSWERS QUESTIONS WHEN BEING ASKED ABOUT PAIN.DENIES PAIN THROUGHOUT THE SHIFT. PT ALSO DENIES N&V. PT REFUSED ON NASAL SPRAY AND DENIES ANY NASAL PAIN. BED ALARM IS ON. BED IS IN THE LOWEST POSITION AND CALL LIGHTS WITHIN REACH.
--- NOTE | 2019-12-29 18:38 | NUR ---
[id number] NOTE; PT ASLEEP COMFORTABLY
--- NOTE | 2019-12-29 18:46 | NUR ---
DENIES ANY PAIN. ASSISTED PT TO BSC AND BACK TO BED.
--- NOTE | 2019-12-30 05:06 | NUR ---
SHIFT SUMMARY PT IS A 79 Y/O FEMALE, ADMITTED FOR FAILURE TO THRIVE AND CURRENTLY ON COMFORT CARE. SHE IS A&O X SELF ONLY, WITH A FLAT AFFECT, AND A 1PA TO THE BEDSIDE COMMODE. PT DENIED ANY COMPLAINTS OF PAIN, NAUSEA OR SOB. NO S/S OF DISTRESS. NO CHANGES IN PT CONDITION NOTED. WILL CONTINUE TO MONITOR AND TREAT PER EMAR UNTIL HAND OFF TO DAY SHIFT RN.
--- NOTE | 2019-12-30 07:28 | NUR ---
ASSISTED THE PT TO BSC AND BACK TO BED. PT DENIES ANY PAIN AT THIS TIME.
--- NOTE | 2019-12-30 08:54 | NUR ---
PT EATING BREAKFAST RIGHT NOW. DENIES PAIN, NAUSE& VOMITING.
--- NOTE | 2019-12-30 11:55 | NUR ---
PT IN BED; NO C/O PAIN AT THIS TIME. PT REFUSED NASAL SPRAY
--- NOTE | 2019-12-30 13:07 | NUR ---
PT ASSISTED TO BSC AND BACK TO BED. DENIES ANY PAIN, DISCOMFORT, NAUSEA AND VOMITING
--- NOTE | 2019-12-30 15:10 | NUR ---
PT SLEEPING COMFORTABLY AT THIS TIME
--- NOTE | 2019-12-30 16:41 | NUR ---
PT SLEEPING COMFORTABLY AT THIS TIME.
--- NOTE | 2019-12-30 17:18 | NUR ---
pt karlene refusing medications wants lights out more frail and obsessed with tissue looks like her nose is running. Will continue to monitor for comfort.
--- NOTE | 2019-12-30 18:37 | NUR ---
PT EATING AT THIS MOMENT. REFUSED AND PAIN MEDICATIONS .
--- NOTE | 2019-12-30 18:38 | NUR ---
SHIFT SUMMARY PT AOX3. PT DENIES PAIN ALL DAY; DENIES NAUSEA AND VOMITING. PT REFUSED ON NASAL SPRAY; PT ALSO DENIES ANY NASAL PAIN. PALLIATIVE NURSE CAME IN TODAY. NO OTHER ACUTE CHANGES AT THIS SHIFT. BED IS IN THE LOWEST POSITION AND CALL LIGHTS WITHIN REACH; BED ALARM ON.
--- NOTE | 2019-12-31 06:00 | NUR ---
SHIFT SUMMARY PT IS A 79 Y/O FEMALE, ORIGINALLY ADMITTED FOR FAILURE TO THRIVE, AND CURRENTLY ON COMFORT CARE. SHE IS A&O X SELF, AND A 1PA TO THE BSC. NO C/O PAIN, NAUSEA OR SOB. PT SLEPT WELL THROUGH THE NIGHT. NO ACUTE CHANGES IN PT CONDITION NOTED. WILL CONTINUE TO MONITOR AND TREAT PER EMAR UNTIL HAND OFF TO DAY SHIFT RN.
--- NOTE | 2019-12-31 07:54 | NUR ---
PT COMFORTABLY SLEEPING AT THIS TIME. NO GRIMACE OR ANY SIGNS OF PAIN AT THIS TIME.
--- NOTE | 2019-12-31 08:56 | NUR ---
ASSISTED PT TO BSC AND BACK TO BED. PT DENIES ANY PAIN TODAY. NAUSEA OR VOMITING.
--- NOTE | 2019-12-31 09:32 | NUR ---
DISCUSSED WITH DR REINA ABOUT PT URINARY URGENCY; ALSO PT HAS NOT BEEN PUTTING MUCH INPUT. NO ORDERS AT THIS TIME. STILL AWAITS PLACEMENT.
--- NOTE | 2019-12-31 10:38 | NUR ---
PT SITTING COMFORTABLY IN BED. OFFERED PT TO TAKE A SHOWER BUT REFUSED, WILL TRY AGAIN LATER. DENIES OF PAIN AT THIS TIME.
--- NOTE | 2019-12-31 13:34 | NUR ---
PT HAD A BED BATH, ASSISTED TO BSC AND BACK TO BED. DENIES PAIN.
--- NOTE | 2019-12-31 14:14 | NUR ---
PT ASSISTED TO BSC AND BACK TO BED. REFUSED NASAL SPRAY AND DENIES PAIN.
--- NOTE | 2019-12-31 15:49 | NUR ---
PT SLEEPING COMFORTABLY AT THIS TIME.
--- NOTE | 2019-12-31 16:48 | NUR ---
SHIFT SUMMARY PT AOX1. PT WEAKER TODAY; PT STILL ABLE TO AMBULATE TO BSC USING FWW. DR AWARE ABOUT THE URINARY FREQUENCY OF THE PT; NO ORDER AT THIS TIME. PT DENIES ANY PAIN OR NASAL PAIN OR DRYNESS TODAY . PT DENIES NAUSEA OR VOMITING; NO APPARENT DISTRESS. BED ALARM IS ON; CALL LIGHTS WITHIN REACH AND BED IS IN THE LOWEST POSITION.
--- NOTE | 2019-12-31 18:08 | NUR ---
PT EATING AT THIS TIME. NO C/O PAIN, N&V.
--- NOTE | 2020-01-01 05:46 | NUR ---
SHIFT SUMMARY PT IS A 79 Y/O FEMALE, CURRENTLY COMFORT CARE. SHE IS A&O X SELF ONLY, WITH A FLAT AFFECT, 1PA TO THE BATHROOM. PT DENIED C/O PAIN, NAUSEA OR SOB. PT SLEPT WELL THROUGH THE NIGHT. NO ACUTE CHANGES IN PT CONDITION NOTED. WILL CONTINUE TO MONITOR AND TREAT PER EMAR UNTIL HAND OFF TO DAY SHIFT RN.
--- NOTE | 2020-01-01 10:42 | NUR ---
Comfort care visit. Aylin is currently laying in bed watching the [place] is right on TV. She has poor eye contact with this scientific technical writer. She does not want to engage in any conversation this morning. She denies any discomfort at this time. PC will continue to follow.
--- NOTE | 2020-01-01 11:07 | NUR ---
PATIENT TRANSFERRED TO [facility] TO VOID. MISTY CARE COMPLETE. PATIENT IS BACK IN BED AT THIS TIME
--- NOTE | 2020-01-01 17:28 | NUR ---
Spiritual care note: Ms. Mcpherson did not engage with me at all. She did not meet my eyes, but continued watcing TV. I am uncertain how much she understands. I will remain available to her.
--- NOTE | 2020-01-01 18:14 | NUR ---
PATIENT FINISHED HER DINNER. GOT UP TO THE BSC WITH ASSISTANCE AND IS NOW BACK TO BED.
--- NOTE | 2020-01-01 18:15 | NUR ---
PATIENT IS ALERT TO SELF AND FOLLOWING DIRECTIONS. CALLS OUT FOR HELP TO GET UP TO THE BSC. POOR APPETITE. PREVENTATIVE MEPILEX ON BACK/BOTTOM, CHANGED TODAY C/D/I. NO COMPLAINTS OF PAIN. PATIENT SLEEPS MOST OF THE DAY. WILL CONTINUE TO MONITOR
--- NOTE | 2020-01-02 04:37 | NUR ---
REFRIGERATION OPERATOR SUMMARY PT A&O TO SELF, ABLE TO MAKE NEEDS KNOWN, PLEASANT AND COOPERATIVE TO CARE. 1 P ASSIST TO THE BSC. CALM AND RESTED IN BED T/O SHIFT. ON COMFORT CARE. NO C/O PAIN OR ANY DISCOMFORT THIS SHIFT. DENIES SOB, CP, OR N&V. BED AT LOWEST POSITION, CALL LIGHT WITHIN REACH.
--- NOTE | 2020-01-02 11:06 | NUR ---
PATIENT IS BACK IN BED AFTER USING THE BSC.
--- NOTE | 2020-01-02 12:34 | NUR ---
PATIENT HAD A BEDBATH TODAY.
--- NOTE | 2020-01-02 15:43 | NUR ---
Pt resting in bed upon arrival. Pt denies pain at this time. Pt appears comfortable with no S/S of distress at this time. Palliative Care will remain available.
--- NOTE | 2020-01-02 17:35 | NUR ---
PATIENT IS ALERT AND ORIENTED TO SELF. SHE CALLS OUT FOR HELP TO GET UP TO THE BSC. NO NEW CONCERNS TODAY. BEDBATH TODAY. WILL CONTINUE TO MONITOR
--- NOTE | 2020-01-03 04:42 | NUR ---
RECEPTIONIST SECRETARY SUMMARY PT ON COMFORT CARE. A&OX2, ABLE TO MAKE NEEDS KNOWN. PLEASANT AND COOPERATIVE TO CARE. 1 PERSON STANDBY ASSIST TO BSC. NO C/O PAIN OR ANY DISCOMFORT THIS SHIFT. DENIES CP, SOB, OR N&V. CALM AND RESTED IN BED T/O SHIFT. BED AT LOWEST POSITION. CALL LIGHT WITHIN REACH.
--- NOTE | 2020-01-03 11:14 | NUR ---
PT HAD LARGE HARD PEEBLE BM
--- NOTE | 2020-01-03 14:58 | NUR ---
pt watching tv moderate po intake, review bowel care strategy with nursing.
--- NOTE | 2020-01-03 17:50 | NUR ---
SHIFT SUMMARY PT A/O X2 AND CURRENTLY ON COMFORT CARE AWAITING PLACEMENT. PATIENT DENIES ANY PAIN OR DISCOMFORT. 1 ASSIST TO THE BSC. PT GETS UP TO THE BSC OFTEN AND VOIDS SMALL AMOUNTS EACH TIME. PT CURRENTLY EATING DINNER W/HER CALL LIGHT IN REACH.
--- NOTE | 2020-01-04 05:12 | NUR ---
SHIFT SUMMARY- PT. ON COMFORT CARE. A&O, WITH HX OF DEMENTIA. HAD NO COMPLAINTS OF PAIN OR DISCOMFORT T/O THE NIGHT. APPEARED TO HAVE SLEPT COMFORTABLY T/O THE SHIFT. CALLS OUT TO NURSING STAFF TO ASSIST FOR TRANSFER ONTO BS. PT. DENIES NEEDS AT THIS TIME. CALL LIGHT WITHIN REACH, SIDE RAILS UPX2, AND BED ALARM ON FOR SAFETY. WILL CONT TO MONITOR.
--- NOTE | 2020-01-04 11:00 | NUR ---
Comfort care visit Aylin was calling out asking for help when this hand sign writer entered the room. She was dangling at the bedside requesting assistance to get up to the BSC. Assisted her with SBA to BSC and allowed her to have some privacy. She was able to void 100 ml urine. No c/o of burning, no strong odor noted. INTEGRATED LOGISTICS SUPPORT MANAGER reports that Aylin was up on the BSC just prior to my arrival. Aylin denies any s/s of a UTI at this time. No c/o constipation. She reports "I feel perfectly comfortable" when asked if she had anything that was bothering her. She declined offers for fluids or a snack. Discussed bowel care with her. She declines medication or prune juice for constipation at this time. PC will remain available for therapeutic visits as Aylin allows as well as symptom management.
--- NOTE | 2020-01-04 17:59 | NUR ---
SHIFT SUMMARY PATIENT ALERT AND ORIENTED. PATIENT WEAK AND 1 PERSON ASSIST TO BEDSIDE COMODE. PATIENT ALTERNATES CALLING OUT AND USING CALL LIGHT. PATIENT COMFORT CARE PATIENT, DENIES PAIN. PATIENT UP FREQUENTLY TO THE BEDSIDE COMODE. PATIENT CURRENTLY SITTING UP IN BED EATING DINNER.
--- NOTE | 2020-01-05 05:34 | NUR ---
SHIFT SUMMARY- NO ACUTE CHANGES OVERNIGHT. PT. ASLEEP MOST OF THE NIGHT. YELLS OUT FOR ASSISTANCE TO USE THE BSC AND CAN BE IMPULSIVE AT TIMES. PT. DENIES PAIN AND DISCOMFORT. AWAITING PLACEMENT. CALL LIGHT WITHIN REACH, SIDE RAILS UPX2, AND BED ALARM ON FOR SAFETY. WILL CONT TO MONITOR.
--- NOTE | 2020-01-05 14:02 | NUR ---
Pt more active today no discomfort noted. appears thinner.
--- NOTE | 2020-01-05 16:51 | NUR ---
Pt up to commode frequently more aggitated today no s/s of infection. She having a hrder time focusing on interactions an saying no to everything. Theraputic time with pt redirectedwith putting sound back on tv. reassess for pain she denies and moves well displaying more aggitated movements. Pt wanted soem chocolate ice cream we facilited her to try soem ativan. She had a chocolate ice cream and a large piece of cake. Review with staff she is high fall risk. Will bring her some treats and encourge staff to spend therputic time with her. She says not to evrything diomedes i tell her she ne needs soemething and she then accepts it. Home is she has a softer bowel movement and to get her some less anexiety and some tolerable stimulus.
--- NOTE | 2020-01-05 17:39 | NUR ---
PATIENT ALERT AND ORIENTED THIS SHIFT. PATIENT COMFORT CARE PATIENT. PATIENT UP TO THE BEDSIDE COMODE MULTIPLE TIMES PER HOUR THROUGHOUT THIS SHIFT. PATIENT FORGETS TO USE CALL LIGHT AND CALLS OUT FREQUENTLY. PATIENT MEDICATED LATE THIS AFTERNOON WITH ATIVAN FOR ANXIETY. PATIENT HAS BEEN ASLEEP SINCE.
--- NOTE | 2020-01-06 07:18 | NUR ---
night assistant summary pt slept good tonight. denies pain, sob. call light within reach, bed alarm on. comfort care measures given.
--- NOTE | 2020-01-06 07:37 | NUR ---
DENIES; PAIN,SOB OR N/V.
--- NOTE | 2020-01-06 09:10 | NUR ---
Comfort care visit Aylin was awake and eating breakfast when this promotion writer arrived in her room. She states she is still working on eating, however about 50 % of breakfast, her muffin and yogurt, has already been consumed. She states she really liked the muffin and yogurt this morning. She denies pain or constipation. Poor eye contact with this promotion writer but she did engage in a little conversation this morning. Assisted her up to BSC for a small (25 ml) void. No odor noted. Pt denies any s/s of UTI at this time. Back to bed with call light in her reach. No requests. PC will continue to follow for symptom management and therapeutic visits.
--- NOTE | 2020-01-06 18:43 | NUR ---
ALERT. UP TO BSC MULTIPLE TIMES THIS SHIFT. TURNS OFF BED ALARM ON HER OWN. HAS HAD SMALL PELLET SIZE B.M. AND REFUSES MEDS FOR CONSTIPATION. "I DON'T NEED ANY." GIVEN WARMED PRUNE JUICE, APPLE JUICE AND MELTED PAT BUTTER AND IS STARTING TO DRINK. DENIES ANY PAIN. UNLABORED RESPIRATIONS. MOVES IN AND OUT OF BED OFTEN, SO NOT TURNED WHILE IN BED. AWAITING PLACEMENT. ON COMFORT CARE. IRRITABLE AT TIMES.WCTM
--- NOTE | 2020-01-07 08:27 | NUR ---
DENIES ANY PAIN OR NEEDS. REFUSES MEDS FOR CONSTIPATION.
--- NOTE | 2020-01-07 08:36 | NUR ---
Comfort care visit: Met with Aylin this morning. She has no complaints. She denies having any symptoms. She is requesting ice water "with lots of ice." Ice water provided, no other requests. Eye contact is fair this morning during my visit. PC will continue to follow. Reviewed current POC with nursing. Waiting on a payor source for placement with hospice services.
--- NOTE | 2020-01-07 17:45 | NUR ---
ALERT. USES BSC ON HER OWN AND SOMETIMES TURNS OFF BED ALARM. DENIES ; PAIN, DISCOMFORT OR SOB. DOES NOT USE CALL LIGHT, BUT PREFERS TO YELL WHEN SHE NEEDS SOMETHING AND STS SHE DOES THAT BECAUSE "ITS SOMETHING TO DO." REFUSES MORNING MEDS "NOT NEEDED" EVEN WHEN ADVISED WHAT THEY ARE FOR. WCTM.
--- NOTE | 2020-01-08 04:50 | NUR ---
fabric worker leader summary pt slept well overnight. pt gets up to use bsc and sometimes turns bed alarm off herself. up frequently to use bsc. refused scheduled colace. comfort care measures given. no acute changes. pt denies pain, sob. bed alarm in place, call light within reach.
--- NOTE | 2020-01-08 17:22 | NUR ---
SHIFT SUMMARY PT HAS BEEN COOPERATIVE BUT PREFERS TO TAKE MUCH CARE OF HERSELF WITHOUT INFERENCE POSSIBLE. DID ASSIST WITH MENU THIS MORNING AND EMPTYING COMMODE. DECLINES ASSISTANCE WHILE IN ROOM OFFERING. DENIES PAIN.
--- NOTE | 2020-01-08 19:15 | NUR ---
ASSUMED CARE. DANIEL IS AOX3, VERY QUITE, DENIES ANY NEEDS OR WANTS. DENIES PAIN OR DISCOMFORT. DOES NOT WANT TO BE BUGGED, PERFERS TO BE LEFT ALONE. CALL LIGHT IS IN REACH.
--- NOTE | 2020-01-08 22:03 | NUR ---
DENIES ANY NEEDS OR WANTS. ABLE TO TURN SELF AND MOVE IN BED.
--- NOTE | 2020-01-09 01:30 | NUR ---
PATIENT IS SLEEPING COMFORTABLY, NO SIGN OF DISTRESS, CALL LIGHT IS IN REACH. WILL CONTINUE TO MONITOR.
--- NOTE | 2020-01-09 04:51 | NUR ---
PATIENT RESTING COMFORTABLY, NO SIGNS OF DISTRESS. CALL LIGHT IN REACH.
--- NOTE | 2020-01-09 06:10 | NUR ---
SHIFT SUMMARY: DANIEL HAD AN UNEVENTFUL NIGHT. SHE CONTINUES TO REFUSE MEDS AND DOES NOT WANT TO BE BOTHERED. ANY TIME WE DID ROUNDING SHE DENIED ANY NEEDS OR WANTS. SHE IS INDEPENDENT TO THE BSC. SHE SLEPT WELL T/O THE NIGHT. CALL LIGHT HAS REMAINED IN REACH.
--- NOTE | 2020-01-09 07:43 | NUR ---
CARE OFFERED WITH ROUNDING. PT DECLINED TO BE PROVIDED CARE BEYOND ANSWERING QUESTIONS. DIDN'T WANT ANYTHING AT THIS TIME.
--- NOTE | 2020-01-09 16:46 | NUR ---
pt encouraged to take a shower today. offered her chocolate desserts as motivation. She had a nice shower and enjoyed her day. She stated she is willing to get out of her room tomorrow we will give it a go.
--- NOTE | 2020-01-09 17:18 | NUR ---
SHIFT SUMMARY PT UP TO COMMODE INDEPENDENTLY. SHOWER TAKEN THIS AFTERNOON AFTER MUCH COAXING. HAS DECLINED CARE OR ASSISTANCE OTHERWISE. DENIES PAIN OR DISTRESS.
--- NOTE | 2020-01-10 06:03 | NUR ---
SHIFT SUMMARY: NO ACUTE CHANGES, PATIENT REMAINS STABLE. CONTINUES TO REFUSE CARE OR EXPRESS ANY NEEDS. INDEPENDENT TO BSC. CALL LIGHT REMAINS WITH IN REACH.
--- NOTE | 2020-01-10 07:00 | NUR ---
PT SITTING UP IN BED CALL LIGHT IN REACH, PER REPORT PT IS INDEPENDENT TO THE BSC. PT DECLINES ALL MEDS AND REPOSITIONING, STAFF CONTINUE TO OFFER. NO S&S OF DISTRESS NOTED AT THIS TIME.
--- NOTE | 2020-01-10 12:30 | NUR ---
PT REFUSES TO LET STAFF ASSIST WITH REPOSITIONING PT HAS DONE HER OWN TOILETING TODAY. PT DECLINED FOR STAFF TO TAKE HER TRAYS SAYING "LEAVE IT, RIGHT, THERE." VERY SERIOUSLY. WILL CONTINUE TO TRY TO PROVIDE CARE.
--- NOTE | 2020-01-10 15:56 | NUR ---
SHIFT SUMMARY- PT HAS HAD NO ACUTE CHANGE T/O THE SHIFT, WILL CTM AND PERFORM CARE ROUNDING.
--- NOTE | 2020-01-10 19:23 | NUR ---
ASSUMED CARE: DANIEL IS IN BED, TV ON, SHE IS SLIGHTLY ASLEEP BUT WAKES TO ME WALKING INTO THE ROOM. SHE DENIED ANY NEEDS OR WANTS. OVERALL SHE APPEARS TO BE DOING OK FROM VISUAL ASSESSMENT. WILL CONTINUE TO MONITOR, CALL LIGHT IS IN REACH.
--- NOTE | 2020-01-11 07:31 | NUR ---
SHIFT SUMMARY: DANIEL HAD AN UNEVENTFUL NIGHT WITH NO CHANGES. SLEPT THE ENTIRE SHIFT EXCEPT TO USE THE BSC. STILL NOT TAKING HER MEDICATIONS. DENIED ANY NEEDS OR CONCERNS. CALL LIGHT REMAINED IN REACH.
--- NOTE | 2020-01-11 14:30 | NUR ---
Comfort Care Visit: Aylin is awake in her room this afternoon, watching TV. She has no requests. Offered to find her some chocolate as previous PC nurse discovered Aylin like chocolate. Aylin states she would enjoy some chocolate. A few pieces of chocolate given to pt who was very appreciative of them. Spoke with nursing, no acute needs identified at this time.
--- NOTE | 2020-01-11 17:52 | NUR ---
SHIFT SUMMARY- PT ALERT AND ORIENTED TO SELF AND SITUATION. PT STILL DENIES ANY NEEDS ON ALL CARE ROUNDING. STAFF CONTINUE TO TRY TO PROVIDE CARE. PT EATING SMALL AMOUNTS, STAFF REMOVE THE TRAY AND LEAVE THE ITEMS SHE SAYS SHE WANTS. PT INDEPENDENT TO THE BSC. SHE DOES NOT CALL FOR ASSISTANCE AT THIS TIME. PT HAS HAD NO ACUTE CHANGE T/O THE SHIFT WILL CTM.
--- NOTE | 2020-01-12 02:00 | NUR ---
01/12/20 0200 PT CONTINUES TO SLEEP WELL WITHOUT DISTRESS. DECLINED FOOD AND FRESH DRINK EARLIER IN SHIFT.
--- NOTE | 2020-01-12 05:53 | NUR ---
01/12/20 0400 PT DENIES NEEDING BRIEF CHECKED BUT RN FOUND VOIDINGS IN TOILET AND IN HER BRIEFS. MISTY-CARE GIVEN. INCONTINENT BRIEF CHANGED. TOOK SIPS OF WATER THROUGHOUT NIGHT. PT CAN BE RUDE TOWARDS STAFF WHEN ASKED QUESTIONS OR GIVEN CARE. TURNS SELF IN BED. DENIES DISCOMFORT OR S/S.
--- NOTE | 2020-01-12 12:57 | NUR ---
therputic visit with patient brought her some chocolate sancks. will continue to provide companioship.
[2020-01-12 15:43] LABS: Influenza A, PCR Negative (NEGATIVE); Influenza B, PCR Negative (NEGATIVE); Resp Syncytial Virus, PCR Negative (NEGATIVE); SARS-Cov-2 (COVID-19) PCR, MMC Negative (NEGATIVE)
--- NOTE | 2020-01-12 18:28 | NUR ---
1731 PT DONNA TRANSFERED TO [facility]IA [facility]. REPORT GIVEN TO BRENNA ALVARADO RN AT [id number]. PT DENIED PAIN, SOB, N/V. NO DISTRESS OR DISCOMFORT OBSERVED.
--- NOTE | 2020-01-12 20:50 | NUR ---
REVIEWED INFORMATION R/T [facility] RN'S CALL FOR INFORMATION.
== END 2020-01-12 17:31 | disposition short-term general hospital (02) | DRG 871 ==
LOC: ER 09:46 → MEDS 09:47 → ER 12:01 → MEDS 12:59 → ENPENDDIS 01-12 16:58 → MEDS 01-12 17:31
PROVIDERS: Internal Medicine; Physician Assistant; ADMIT Internal Medicine
DX: A41.50 Gram-negative sepsis, unspecified (principal); E43 Unspecified severe protein-calorie malnutrition; G92 Toxic encephalopathy; N39.0 Urinary tract infection, site not specified; Z68.1 Body mass index [BMI] 19.9 or less, adult; Z66 Do not resuscitate; Z20.828 Contact with and (suspected) exposure to other viral communicable diseases; E86.0 Dehydration; F03.90 Unspecified dementia, unspecified severity, without behavioral disturbance, psychotic disturbance, mood disturbance, and anxiety; F17.210 Nicotine dependence, cigarettes, uncomplicated; F32.9 Major depressive disorder, single episode, unspecified; J44.9 Chronic obstructive pulmonary disease, unspecified; R62.7 Adult failure to thrive; Z91.19 Patient's noncompliance with other medical treatment and regimen; Z85.22 Personal history of malignant neoplasm of nasal cavities, middle ear, and accessory sinuses; Z51.5 Encounter for palliative care; Z23 Encounter for immunization
CPT/HCPCS: 0241U; 36415; 51701; 71045; 80053; 80069; 81001; 83880; 84484; 85025; 85027; 87077; 87086; 87186; 93005; 93010; 94760; 96365; 96366; 96372; 97110; 97161; 97166; 97530; 99285-25; A9270; G0008; G0378; J0696; J1650; J7050; Q2038

== ENCOUNTER → 2020-05-15 | Outpatient (CLI) | payer OTHER | END | disposition home or self-care (01) | LOC: LAB SHORT 07:42 → PLD 07:42 | DX: D48.7 Neoplasm of uncertain behavior of other specified sites (principal); C44.321 Squamous cell carcinoma of skin of nose | CPT/HCPCS: 88305 ==

== ENCOUNTER → 2020-06-18 | Outpatient (CLI) | payer OTHER ==
[2020-06-18 16:50] LABS: Appearance, Urine Clear (Clear); Bilirubin, Urine Neg (Neg); Blood, Urine Neg (Neg); Color, Urine Yellow (P-Yellow); Glucose Qualitative, Urine Neg (Neg); Ketones, Urine Neg (Neg); Leukocyte Esterase, Urine Neg (Neg); Nitrite, Urine Neg (Neg); Protein, Urine Neg (Neg); Specific Gravity, Urine 1.015 (1.003-1.022); Urobilinogen, Urine NORM (Normal); pH, Urine 6.5 (5.0-8.0)
== END ==
LOC: LAB SHORT 12:00
PROVIDERS: Family Medicine
DX: N39.0 Urinary tract infection, site not specified (principal)
CPT/HCPCS: 81003; 87086

== ENCOUNTER → 2020-07-11 | Outpatient (CLI) | payer OTHER ==
[2020-07-11 09:38] LABS: Bilirubin, Urine Neg (Neg); Blood, Urine 3+ (Neg); Glucose Qualitative, Urine Neg (Neg); Ketones, Urine Neg (Neg); Leukocyte Esterase, Urine 3+ (Neg); Nitrite, Urine Neg (Neg); Protein, Urine 1+ (Neg); Specific Gravity, Urine 1.025 (1.003-1.022); Urobilinogen, Urine NORM (Normal)
[2020-07-11 09:53] LABS: Amorphous Light (0-Heavy); Appearance, Urine Hazy (Clear); Bacteria Mod /hpf; Color, Urine Yellow (P-Yellow); Mucus Light (0-Heavy); Squamous Epithelial Cells Few /hpf (Few); Uric Acid Crystals Few /hpf
== END ==
LOC: LAB 08:43 → LAB SHORT 08:43
PROVIDERS: Family Medicine
DX: N39.0 Urinary tract infection, site not specified (principal)
CPT/HCPCS: 81001; 87086